=== PATIENT | female | born 1995 | race Caucasian/White ===

== ENCOUNTER 2019-12-13 19:40 | Emergency (ER) | payer OTHER ==
--- NOTE | 2019-12-13 20:15 | TELE ---
HPI Do you have fever,cough or shortness of breath?: Yes - General History Source: Patient (29-year-old male presents via telehealth for Covid testing. Patient is traveling to [place] 7 days and needs testing for travel. Patient denies medical history or smoking history. Patient is currently asymptomatic.) Exam Limitations: No Limitations - History of Present Illness Modifying Factors: improves with: other Associated Symptoms: reports: denies symptoms Past History - Travel History Traveled outside of the country in the last 30 days: No Close contact w/someone who was outside of country & ill: No - Psycho-Social/Smoking History Patient Lives Alone: No Lives with/in: spouse/SO Do you think of yourself as: Straight/Heterosexual Smoking History: Never smoked - Substance Abuse Hx ([facility] & [facility]) In the last yr the pt used illegal drug/Rx for NonMed reason: No Review of Systems - Review of Systems Able to Perform ROS?: Yes Constitutional: No: Symptoms Reported HEENTM: No: Symptoms Reported Respiratory: No: Symptoms reported Cardiac (ROS): No: Symptoms Reported ABD/GI: No: Symptoms Reported : No: Symptoms Reported Musculoskeletal: No: Symptoms Reported Integumentary: No: Symptoms Reported Neurological: No: Symptoms reported Endocrine: No: Symptoms Reported Hematologic/Lymphatic: No: Symptoms Reported *Physical Exam - Physical Exam General Appearance: Yes: Nourished, Appropriately Dressed. No: Apparent Distress HEENT: positive: EOMI Neck: negative: Decreased range of motion Respiratory/Chest: negative: Respiratory Distress Cardiovascular: negative: Edema Gastrointestinal/Abdominal: negative: Distended Integumentary: positive: Normal Color Neurologic: positive: Motor Strength 5/5 (ambulatory) - Medical Decision Making 12/13/19 20:09 CC: covid testing request for travel, no s/s, no med hx Exam: limited but otherwise normal Plan: covid testing Discharge Diagnosis at time of Disposition: Encounter for laboratory testing for COVID-19 virus - Referrals - Patient Instructions - Discharge Disposition: HOME Condition at time of Disposition: Good
== END 2019-12-13 20:18 | disposition home or self-care (01) ==
LOC: JVIRT 19:40
DX: Z11.59 Encounter for screening for other viral diseases (principal)
CPT/HCPCS: C9803; Q3014-GT; U0003